=== PATIENT | male | born 1975 | race Caucasian/White ===

== ENCOUNTER 2018-01-17 15:53 | Outpatient (CLI) | payer BC ==
[2018-01-17 16:42] LABS: Hemoglobin 15.4 g/dL (14.0-18.0); Mean Corpuscular HGB CONC 33.6 g/dL (32.0-36.0); Mean Corpuscular Hemoglobin 31.2 pg (27.0-31.0); Mean Corpuscular Volume 92.9 fl (80.0-94.0); Mean Platelet Volume 6.9 fL (7.4-10.4); Platelet Count 290 thou/uL (130-400); RBC Distribution Width 11.4 % (11.5-14.5); Red Blood Cell (RBC) Count 4.93 mill/uL (4.70-6.10)
[2018-01-17 17:06] LABS: Anion Gap 13 mmol/L (10-20); BUN (Urea Nitrogen) 11 mg/dL (8.9-20.6); Calc. Creatinine Clearance 0 mL/min (70-130); Carbon Dioxide 29 mmol/L (22-29); Chloride 102 mmol/L (98-107); Estimated GFR-MDRD Greater than 90; Glucose 90 mg/dL (70-105); Potassium 4.8 mmol/L (3.5-5.1); Sodium 139 mmol/L (136-145)
--- NOTE | 2018-01-18 15:36 | EKG ---
Test Reason : Blood Pressure : / mmHG Vent. Rate : 086 BPM Atrial Rate : 086 BPM P-R Int : 152 ms QRS Dur : 106 ms QT Int : 372 ms P-R-T Axes : 054 075 031 degrees QTc Int : 445 ms Normal sinus rhythm Incomplete right bundle branch block Abnormal ECG Confirmed by ALICE TIWARI ([id number]) on 01/18/2018 3:36:14 PM Referred By: ZEKE Confirmed By:ALICE TIWARI
== END 2018-01-17 15:54 | disposition home or self-care (01) ==
LOC: LABBT 15:53
PROVIDERS: ATTEND Neurological Surgery
DX: Z01.818 Encounter for other preprocedural examination (principal); M54.16 Radiculopathy, lumbar region
CPT/HCPCS: 80048; 85027; 93005; 93010

== ENCOUNTER 2018-01-23 06:31 | Day surgery (SDC) | payer BC ==
[2018-01-17 16:34] VITALS: BMI 32.1
[2018-01-23] MEDS ORDERED: Sodium Chloride 0.9% 10 ML ONE (06:53)
[2018-01-23] MEDS ORDERED: CEFAZOLIN/Water 2 GM/20 ML SYRINGE ONE (07:24)
[2018-01-23] MEDS ORDERED: Fentanyl 100 MCG/2 ML VIAL ONE ×3 (08:03→10:30)
[2018-01-23] MEDS ORDERED: Midazolam HCl 2 mg/2 ml Vial ONE (08:04)
[2018-01-23] MEDS ORDERED: HYDROmorphone 0.5 MG/0.5 ML SYRINGE ONE (09:14)
--- NOTE | 2018-01-23 09:44 | OP ---
DATE OF PROCEDURE: 01/23/2018 SURGEON: Aries Palmer M.D. ELEMENTARY READING SPECIALIST: Xavier Cheek PROCEDURES: Right L4-L5 laminectomy, facetectomy, foraminotomy, interbody arthrodesis, intravertebra l biomechanical device, local morselized autograft, demineralized bone matrix, posterior lateral arth rodesis and pedicle screw instrumentation L4-L5. PROCEDURE IN DETAIL: The patient brought into the operating room, intubated. He was rolled in the p anshu position on gel-filled chest rolls. The previous incision was reopened and extended. The right L4-5 region was exposed. The prior scar was identified. We performed a right L4-5 laminectomy, fac etectomy, and foraminotomy and then completely removed the intravertebral discs decompressing the rig ht L5 nerve root. Next, the intravertebral disc was completely removed and the bony endplates decort icated for the purpose of arthrodesis. An appropriately sized intravertebral biomechanical PEEK adrien ce was brought into the field, filled with demineralized bone matrix and local morselized autograft, and tapped into place securely at L4-5. Next, pedicle screws were placed at right L4 and right L5 us ing lateral fluoroscopic guidance and the position was confirmed with x-ray. A wallace was secured betwe en the screws, connected by nuts which were final tightened. The wound was then extensively irrigate d, immaculate hemostasis was secured. A combination of demineralized bone matrix and local morselize d autograft was laid over the left laminar and posterolateral surfaces for the purpose of arthrodesis . Vancomycin powder was applied and the wound was then closed in anatomic layers.
[2018-01-23] MEDS ORDERED: HYDROcodone/Acetaminophen 5/325 mg Tablet ONE (11:54)
[2018-01-23] MEDS ORDERED: Dexamethasone 20 MG/5 ML VIAL ONE (13:53)
[2018-01-23] MEDS ORDERED: diphenhydrAMINE 50 MG/ML VIAL ONE (13:53)
[2018-01-23] MEDS ORDERED: Ketorolac Tromethamine 30 MG/ML VIAL ONE (13:53)
[2018-01-23] MEDS ORDERED: Ondansetron HCl/PF 4 MG/2 ML Vial ONE (13:53)
[2018-01-23] MEDS ORDERED: PROPOFOL 200 MG/20 ML VIAL ONE (13:53)
[2018-01-23] MEDS ORDERED: Esmolol 100 MG/10 ML VIAL ONE (13:53)
[2018-01-23] MEDS ORDERED: Lidocaine 1% PF 5 ML VIAL ONE (13:53)
[2018-01-23] MEDS ORDERED: ePHEDrine/0.9% NaCl/PF SYRINGE 50 mg/10 ml ONE (13:53)
[2018-01-23] MEDS ORDERED: Glycopyrrolate 0.2 MG/ML 5 ML SYRINGE ONE (13:53)
[2018-01-23] MEDS ORDERED: Metoclopramide HCl 10 MG/2 ML VIAL ONE (13:53)
== END 2018-01-23 12:30 | disposition home or self-care (01) ==
LOC: SDC 06:31
PROVIDERS: ATTEND Neurological Surgery
PROC: 0ST20ZZ Resection of Lumbar Vertebral Disc, Open Approach (ICD-10-PCS; principal; 2018-01-23)
PROC: 0SG00AJ Fusion of Lumbar Vertebral Joint with Interbody Fusion Device, Posterior Approach, Anterior Column, Open Approach (ICD-10-PCS; principal; 2018-01-23)
DX: M54.16 Radiculopathy, lumbar region (principal); L40.9 Psoriasis, unspecified; Z79.84 Long term (current) use of oral hypoglycemic drugs; Z79.891 Long term (current) use of opiate analgesic; Z79.899 Other long term (current) drug therapy; Z98.890 Other specified postprocedural states
CPT/HCPCS: 76001; 96374; A4216; C1713; C1768; J1100; J1170; J1200; J1885; J2001; J2250; J2405; J2704; J2765; J3010; J3370; J3490

== ENCOUNTER 2018-02-07 09:48 | Outpatient (CLI) | payer BC ==
--- NOTE | 2018-02-07 11:17 | RAD ---
LUMBAR SPINE SERIES TWO VIEWS: History: Right leg pain. Recent surgery two weeks ago. FINDINGS: There is scoliotic change to the spine, convex to the left. There are prominent osteophytic changes w ith some disc narrowing at L2-3. Marked disc narrowing at L5-S1. Right sided unilateral pedicle screw s are seen at the L4-5 level. Markers of the disc implant are confined to the disc level. Surgical st aples are present. IMPRESSION: Arthritic changes of the spine and scoliosis. POS: [facility]
== END 2018-02-07 09:49 | disposition home or self-care (01) ==
LOC: TBSIIMAG 09:48
PROVIDERS: ATTEND Neurological Surgery
DX: M54.16 Radiculopathy, lumbar region (principal); M46.96 Unspecified inflammatory spondylopathy, lumbar region; M41.86 Other forms of scoliosis, lumbar region
CPT/HCPCS: 72100